=== PATIENT | female | born 1935 | race Caucasian/White ===

== ENCOUNTER 2018-12-29 11:28 | Inpatient (IN) | payer OTHER ==
[2018-12-23 12:59] VITALS: BMI 22.0
[2018-12-29] MEDS ORDERED: VANCOMYCIN 1 GRAM (PRE-DOCKED) 1,000 MG/250 ML BAG IVPB ONE (13:12)
[2018-12-29] MEDS ORDERED: CEFAZOLIN 1 GM/D5W 1 GM/50 ML BAG IVPB ONE (13:12)
[2018-12-29] MEDS ORDERED: TRANEXAMIC ACID 1000 MG/10 ML VIAL IVPUSH ONE (13:12)
[2018-12-29] MEDS ORDERED: MIDAZOLAM HCL 2 MG/2 ML SINGLE DOSE VIAL ONE (15:01)
[2018-12-29] MEDS ORDERED: SODIUM CHLORIDE 0.9% P/F 10 ML VIAL IJ ONE (15:01)
[2018-12-29] MEDS ORDERED: BUPIVACAINE LIPOSOME/PF (EXPAREL) 266 MG/20 ML VIAL ONE (15:01)
[2018-12-29] MEDS ORDERED: VANCOMYCIN 1,000 MG VIAL (RESTRICTED TO ID ONLY) ONE (15:55)
[2018-12-29] MEDS ORDERED: BUPIVACAINE HCL/PF 0.5% (5MG/ML) 10 ML VIAL ONE (16:53)
[2018-12-29] MEDS ORDERED: BUPIVACAINE 0.75% IN DEXTROSE/PF 2ML AMPULE NR ONE (17:06)
[2018-12-29] MEDS ORDERED: PROPOFOL 20 ML ONE ×3 (17:07)
[2018-12-29] MEDS ORDERED: ePHEDrine SULFATE 50 MG/1 ML AMPULE ONE (18:02)
[2018-12-29] MEDS ORDERED: DEXAMETHASONE SOD PHOSPHATE 4 MG/1 ML VIAL ONE (18:32)
[2018-12-29] MEDS ORDERED: ONDANSETRON 4 MG/2 ML VIAL ONE (18:33)
[2018-12-29] MEDS ORDERED: MAGNESIUM HYDROX 2400MG/30ML ORAL SUSPENSION 30 ML CUP PO PRN (19:46)
[2018-12-29] MEDS ORDERED: ONDANSETRON 4 MG/2 ML VIAL IVPUSH PRN (19:46)
[2018-12-29] MEDS ORDERED: MAG HYDROX/AL HYDROX/SIMETH 30 ML UNIT-DOSE CUP PO PRN (19:46)
--- NOTE | 2018-12-29 19:49 | PN ---
Progress Note (short form) - Note Progress Note: 83F s/p RIGHT total knee replacement POD #0. -Pain control. -DVT PPx: -Chemical: ASA 81mg PO BID x 6 weeks post-op; OK to restart Plavix. -Mechanical: ANA MARIA's, SCD's. -Incentive spirometry q15 min. -PT/OT/Rehab, OOB. -WBAT RLE. -Post-op Ancef x 2 doses. -f/u post-op TOV: 8 hours max. -f/u AM labs. -f/u drain output. -Diet as tolerated. -Care per medical hospitalist team. -Discharge planning: f/u [facility] Thursday12/05/2018; call for appointment . -Will follow. Frederick Marinelli MD (Orthopaedic Surgery).
--- NOTE | 2018-12-29 19:51 | OP ---
Operative Note - Note: Operative Date: 12/29/18 Pre-Operative Diagnosis: Right knee DJD Operation: Right TKA Implants: Dieter Triathlon. Femur - 3. Tibia - 2. Poly - 16mm, TS. Patella - 27mm, symmeric Post-Operative Diagnosis: Same as Pre-op Surgeon: Frederick Marinelli Electrician Apprentice Powerhouse: Vivek Marinelli Anesthesiologist/STATE GAME PROTECTOR: Rahul Cabrera Anesthesia: General, Spinal Specimens Removed: Bone, soft tissue Estimated Blood Loss (mls): 0 Drains & Tubes with Location: 1 x deep HemoVac Operative Report Dictated: Yes
[2018-12-29] MEDS ORDERED: LACTATED RINGERS SOLUTION 1,000 ML IV SCH (20:00)
[2018-12-29] MEDS ORDERED: PROMETHAZINE HCL 25 MG/1 ML VIAL IVPUSH PRN (20:03)
[2018-12-29] MEDS ORDERED: ACETAMINOPHEN 1000 MG/100 ML VIAL (NON FORMULARY) IVPB ONE (20:05)
[2018-12-29] MEDS ORDERED: ACETAMINOPHEN INJECTION 100 ML IVPB ONE (20:09)
[2018-12-29] MEDS ORDERED: ACETAMINOPHEN 325 MG TABLET (FP) PO SCH (20:15)
--- NOTE | 2018-12-29 20:59 | CONSULT ---
Consult Consult Specialty:: IM Reason for Consultation:: post-op medical management - History of Present Illness Chief Complaint: right knee pain History of Present Illness: 83 yo lady with chronic right knee DKD came in for TKR. currently recovering post-op no complaints - History Source History Provided By: Family Member - Past Medical History ...: No - Alcohol/Substance Use Hx Alcohol Use: No - Smoking History Smoking history: Never smoked Have you smoked in the past 12 months: No Home Medications - Allergies Allergies/Adverse Reactions: Allergies Allergy/AdvReac Type Severity Reaction Status Date / Time No Known Drug Allergies Allergy Verified 12/23/18 12:33 - Home Medications Home Medications: Ambulatory Orders Calcium Carbonate [Calcium] 500 mg PO DAILY 12/23/18 Clopidogrel Bisulfate [Plavix] 75 mg PO DAILY 12/23/18 Ferrous Sulfate 325 mg PO DAILY 12/23/18 Review of Systems - Review of Systems Constitutional: reports: No Symptoms Eyes: reports: No Symptoms HENT: reports: No Symptoms Neck: reports: No Symptoms Cardiovascular: reports: No Symptoms Respiratory: reports: No Symptoms Gastrointestinal: reports: No Symptoms Genitourinary: reports: No Symptoms Musculoskeletal: reports: Joint Pain Integumentary: reports: No Symptoms Neurological: reports: No Symptoms Endocrine: reports: No Symptoms Hematology/Lymphatic: reports: No Symptoms Psychiatric: reports: No Symptoms Physical Exam Vital Signs: Vital Signs Temperature 97.6 F 12/29/18 19:54 Pulse Rate 65 12/29/18 20:00 Respiratory Rate 1 L 12/29/18 20:00 Blood Pressure 154/73 12/29/18 20:00 O2 Sat by Pulse Oximetry (%) 99 12/29/18 20:00 Constitutional: Yes: Well Nourished, No Distress, Calm Eyes: Yes: WNL HENT: Yes: WNL Neck: Yes: WNL Cardiovascular: Yes: WNL Respiratory: Yes: WNL Gastrointestinal: Yes: WNL Renal/: Yes: WNL Musculoskeletal: Yes: Joint Stiffness Extremities: Yes: WNL Edema: No Peripheral Pulses WNL: Yes Integumentary: Yes: WNL Wound/Incision: Yes: Clean/Dry, Well Approximated, Dressing Dry and Intact Neurological: Yes: WNL Assessment/Plan 83 yo lady with chronic DJD S/P right knee TKR. POD#0. cont pain management. incentive spirometry. -GI, DVT prophylaxis. -cont stool softeners for opioid induced constipation -PT/OT/OOBa s tolerated -oal diet when more awake -assessment and plan discussed with medical staff and son at bedside. -labs pending. meds reviewed. will f/u in AM
[2018-12-29] MEDS: oxyCODONE HCL 5 MG TABLET PO PRN (22:31)
[2018-12-29] MEDS: ASPIRIN COATED 81 MG TABLET.EC PO SCH (22:32)
[2018-12-29] MEDS: SENNOSIDES/DOCUSATE COMBO (SENNA PLUS) TABLET (UD) PO SCH (22:33)
[2018-12-30] MEDS: ACETAMINOPHEN 325 MG TABLET (FP) PO SCH ×4 (01:54→20:28)
[2018-12-30] MEDS: CEFAZOLIN 1 GM/D5W 1 GM/50 ML BAG IVPB SCH ×2 (01:55→09:08)
[2018-12-30] MEDS: oxyCODONE HCL 5 MG TABLET PO PRN ×3 (06:42→18:40)
[2018-12-30 08:00] LABS: HEMATOCRIT 41.9 % (32.4-45.2); HEMOGLOBIN 14.3 GM/dl (10.7-15.3); MCH 31.2 pg (25.7-33.7); MCHC 34.1 g/dl (32.0-36.0); MEAN CELL VOLUME 91.5 fl (80-96); MEAN PLT VOLUME 10.5 fl (7.5-11.1); PLATELET COUNT 152 K/MM3 (134-434); RBC 4.58 M/mm3 (3.60-5.2); RDW 13.2 % (11.6-15.6); WHITE BLOOD COUNT 11.1 K/mm3 (4.0-10.8)
--- NOTE | 2018-12-30 08:00 | SPA.POSTOP ---
- POST-OP NOTE POD #1 s/p Right total knee replacement No acute events since surgical procedure per RN notes. Patient resting comfortably. Pain management via prn meds. Denies n/v/f/c, CP or SOB. Last Vital Signs Temp Pulse Resp BP Pulse Ox 98.6 F 90 20 122/59 L 95 12/30/18 06:00 12/30/18 06:00 12/30/18 06:00 12/30/18 06:00 12/30/18 06:00 Physical Exam General: No acute distress. Pulm: Clear to auscultation bilat anteriorly Cor: Regular rhythm Abd: Soft. Non-tender. No distention LE: Soft, Rt leg no weakness or numbness, dressing clean and intact, drain in place with serosanguinous drainage. Output: 10ml Problem List - Problems (1) S/P total knee arthroplasty Assessment/Plan: Plan -pt appears to be doing well, plan for discharge home tomorrow if no issues with PT -plan to remove drain tomorrow -pain control -OOB/ambulate -DVT ppx Case discussed with Dr. Marinelli who agrees with plan Code(s): Z96.659 - PRESENCE OF UNSPECIFIED ARTIFICIAL KNEE JOINT Qualifiers: Laterality: right Qualified Code(s): Z96.651 - Presence of right artificial knee joint
[2018-12-30 08:05] LABS: CALCIUM 8.7 mg/dl (8.5-10); CREATININE 0.8 mg/dl (0.55-1.3); POTASSIUM 4.1 mmol/L (3.5-5.1)
--- NOTE | 2018-12-30 09:01 | PN ---
Progress Note, Physician Chief Complaint: right knee pain History of Present Illness: 83 yo lady with chronic right knee DKD came in for TKR. currently recovering post-op no complaints - Current Medication List Current Medications: Active Medications Acetaminophen (Tylenol -) 650 mg PO Q6H [facility] Last Admin: 12/30/18 01:54 Dose: 650 mg Al Hydroxide/Mg Hydroxide (Mylanta Oral Suspension -) 30 ml PO Q4H PRN PRN Reason: DYSPEPSIA Aspirin (Ecotrin -) 81 mg PO BID [facility] Last Admin: 12/29/18 22:32 Dose: 81 mg Clopidogrel Bisulfate (Plavix -) 75 mg PO DAILY [facility] Cefazolin Sodium (Ancef 1 Gm Premixed Ivpb -) 1 gm in 50 mls @ 100 mls/hr IVPB Q8H-IV [facility] Stop: 12/30/18 10:29 Last Admin: 12/30/18 01:55 Dose: 100 mls/hr Magnesium Hydroxide (Milk Of Magnesia -) 30 ml PO PRN PRN PRN Reason: CONSTIPATION Ondansetron HCl (Zofran Injection) 4 mg IVPUSH Q6H PRN PRN Reason: NAUSEA Last Admin: 12/29/18 20:08 Dose: 4 mg Oxycodone HCl (Roxicodone -) 5 mg PO Q3H PRN PRN Reason: PAIN LEVEL 1-5 Oxycodone HCl (Roxicodone -) 10 mg PO Q3H PRN PRN Reason: PAIN LEVEL 6-10 Last Admin: 12/30/18 06:42 Dose: 10 mg Pantoprazole Sodium (Protonix -) 40 mg PO DAILY [facility] Promethazine HCl (Phenergan Injection -) 12.5 mg IVPUSH Q6H PRN PRN Reason: NAUSEA-FOR RESCUE AFTER 15 MIN Senna/Docusate Sodium (Pericolace -) 2 tablet PO BID [facility] Last Admin: 12/29/18 22:33 Dose: 2 tablet - Objective Vital Signs: Vital Signs Temperature 98.6 F 12/30/18 06:00 Pulse Rate 90 12/30/18 06:00 Respiratory Rate 20 12/30/18 06:00 Blood Pressure 122/59 L 12/30/18 06:00 O2 Sat by Pulse Oximetry (%) 95 12/30/18 06:00 Constitutional: Yes: Well Nourished, No Distress, Calm Eyes: Yes: WNL HENT: Yes: WNL Neck: Yes: WNL Cardiovascular: Yes: WNL Respiratory: Yes: WNL Gastrointestinal: Yes: WNL Genitourinary: Yes: WNL Musculoskeletal: Yes: Joint Stiffness Extremities: Yes: WNL Edema: No Peripheral Pulses WNL: Yes Integumentary: Yes: WNL Wound/Incision: Yes: Clean/Dry, Well Approximated, Dressing Dry and Intact Neurological: Yes: WNL ...Motor Strength: WNL Psychiatric: Yes: WNL Labs: CBC, BMP 12/30/18 07:21 12/30/18 07:21 Assessment/Plan 83 yo lady with chronic DJD S/P right knee TKR. POD#1 cont pain management. incentive spirometry. -GI, DVT prophylaxis. -cont stool softeners for opioid induced constipation -PT/OT/OOBa s tolerated. to start today -oral diet; well tolerated -assessment and plan discussed with medical staff. -labs reviewed. WNL - meds reviewed. w HILDA planned for tomorrow
[2018-12-30] MEDS: SENNOSIDES/DOCUSATE COMBO (SENNA PLUS) TABLET (UD) PO SCH ×2 (09:08→21:59)
[2018-12-30] MEDS: ASPIRIN COATED 81 MG TABLET.EC PO SCH ×2 (09:08→21:59)
[2018-12-30] MEDS: PANTOPRAZOLE 40 MG TABLET (FP) PO SCH (09:08)
[2018-12-30] MEDS: CLOPIDOGREL BISULFATE 75 MG TABLET (FP) PO SCH (09:08)
--- NOTE | 2018-12-30 12:40 | PN ---
Progress Note (short form) - Note Progress Note: Anesthesia post op note POD#1. S/P right TKA under spinal, general anesthesia. Pat seen and examined.VSS. On PT. Pain scale 4-5/10. No apparent post anesthesia complications.
--- NOTE | 2018-12-30 14:28 | OP ---
DATE OF OPERATION: 12/29/2018 SURGEON: Frederick Marinelli MD MARKETING DESIGNER: Vivek Marinelli MD PREOPERATIVE DIAGNOSIS: Fixed-valgus, fixed-flexed tricompartment osteoarthritic right knee. POSTOPERATIVE DIAGNOSIS: Fixed-valgus, fixed-flexed tricompartment osteoarthritic right knee. OPERATION PERFORMED: Right posterior stabilized total knee arthroplasty, (Dieter cemented). ANESTHESIA: General with peripheral nerve block. ANTIBIOTICS GIVEN: Kefzol 2 g, vancomycin 1 g, and Kefzol 1 g given at the end of the procedure. OPERATION DETAILS: Patient correctly identified, brought into the operating room. The right lower extremity was prepped and draped in the routine manner with Betadine scrub solution, wiped off with alcohol, DuraPrep applied. Preoperative evaluation revealed an approximately 30-degree valgus-fixed deformity and a 10-degree fixed-flexed deformity. Timeout was called. Imaging was available for intraoperative evaluation. Patient subjected to cleansing of the limb with Betadine scrub solution, wiped off with alcohol, DuraPrep applied, a free drape applied. A midline incision utilized. Dissection was taken through the skin, subcutaneous tissue, to the retinaculum and quadriceps mechanism. To start, the epimysium of vastus medialis was lifted off the muscle, and the dissection of the muscle extended right around to the intermuscular septum including the linea aspera. Diathermization of the small vessels along this part of the dissection performed. This was well anterior to the superficial femoral artery. The dissection was then continued along the tibia, from the tibial tubercle upwards to the level proximal to the joint line and then curving medially to join the dissection of the vastus medialis. The proximal soft tissues of the tibia were dissected sharply off the bone. The Hoffa fat pad was resected after creating a space behind the patellar ligament. The patella was capsized laterally and the knee flexed with a Hohmann placed behind the tibia and on the medial side of the tibia as well as the lateral side of the tibia. The entire tibia was subluxed forwards, this with the tibia in external rotation. The 1st cut was that with the extramedullary jig. This brought about a neutral 90-degree cut to the tibial shaft. Once this had been performed, the femoral cut was made, started slightly medially, that is, just on the lateral side of the medial femoral condyle. The intramedullary alignment jig was inserted. This was an intramedullary alignment, and the jig was applied to this appropriately. The sizing of the components was a tibia size 2, femur size 3. The flexion gaps and extension gaps, after all the tibial cuts were made, were at approximately 16 mm. The knee was straight with the appropriate rectangle in the flexion-extension gap being equal and appropriate tissue to the medial collateral stretched out structures achieved with this degree of expansion of the joint. Once this had been performed, and once all bony cuts had been completed, the tissues were subjected to pulse lavage including the bone bed, and cementing was in 1 stage. The patella itself was prepared by placing 2 sharp towel clip clamps around the patellar ligament and quadriceps tendon to hold the patella accurately and the actual pre-patellar cut was made to bring about a cut from the patellar ligament to quadriceps tendon. The appropriate jig was applied for the lugholes accordingly and size 27-mm patellar button opted for. Severe synovitis was resected appropriately and a full debridement of the knee performed. Again the bone bed was thoroughly lavaged, and cementing in 1 stage, that is, tibia followed by femur, then patella. All extraneous cement was removed. Once the cement had cured, at that point, a 16 trial polyethylene liner was inserted, found to bring about excellent stability in the coronal and sagittal plane in full flexion and full extension and no anterior subluxation of any significance. Because of the slightly space opening in the medial side, we elected to use a TS polyethylene on the 16 polyethylene liner. The wounds were thoroughly lavaged again. The knee range of movement was excellent, patellar tracking was normal in neutral. The closure was as follows: The medial retinaculum to the patellar ligament and remaining retinacular tissue with number 1 Vicryl, subcutaneous 1 and 2-0 Vicryl, skin 3-0 Monocryl with Steri-Strips. Drainage: A 1/8-inch Hemovac drain placed in the sub-vastus bed, brought out laterally. No complications. Operation went well. MD CARMELO Lopez/[id number]
[2018-12-31] MEDS: ACETAMINOPHEN 325 MG TABLET (FP) PO SCH ×3 (03:17→15:57)
[2018-12-31] MEDS: oxyCODONE HCL 5 MG TABLET PO PRN ×3 (06:45→15:56)
[2018-12-31 08:05] LABS: HEMATOCRIT 36.5 % (32.4-45.2); HEMOGLOBIN 12.3 GM/dl (10.7-15.3); MCH 30.7 pg (25.7-33.7); MCHC 33.7 g/dl (32.0-36.0); MEAN CELL VOLUME 91.1 fl (80-96); MEAN PLT VOLUME 10.2 fl (7.5-11.1); PLATELET COUNT 142 K/MM3 (134-434); RBC 4.01 M/mm3 (3.60-5.2); RDW 13.4 % (11.6-15.6); WHITE BLOOD COUNT 9.6 K/mm3 (4.0-10.8)
--- NOTE | 2018-12-31 08:53 | SPA.POSTOP ---
- POST-OP NOTE POD #2 s/p Right knee replacement No acute events since surgical procedure per RN notes. Patient resting comfortably. Pain management via prn meds. Denies n/v/f/c, CP or SOB. Last Vital Signs Temp Pulse Resp BP Pulse Ox 98.8 F 77 18 138/66 98 12/31/18 06:46 12/31/18 06:46 12/31/18 06:46 12/31/18 06:46 12/31/18 06:46 Physical Exam General: No acute distress. Pulm: breathing comfortably Cor: Regular rhythm Abd: Soft. Non-tender. No distention RLE: dressing is clean and in place, drain in place with serosanguinous drainage , mild tenderness over knee, no weakness or numbness Output: 210ml Problem List - Problems (1) S/P total knee arthroplasty Assessment/Plan: Plan -pt appears to be doing well, Knee drain was removed at bedside without incident. -pt should be cleared for discharge for home after PT this am -follow up with Dr. Marinelli in 2 weeks, see discharge instructions -discharge per MedicineDr. Dubon Code(s): Z96.659 - PRESENCE OF UNSPECIFIED ARTIFICIAL KNEE JOINT Qualifiers: Laterality: right Qualified Code(s): Z96.651 - Presence of right artificial knee joint
[2018-12-31] MEDS: CLOPIDOGREL BISULFATE 75 MG TABLET (FP) PO SCH (10:09)
[2018-12-31] MEDS: ASPIRIN COATED 81 MG TABLET.EC PO SCH (10:09)
[2018-12-31] MEDS: SENNOSIDES/DOCUSATE COMBO (SENNA PLUS) TABLET (UD) PO SCH (10:09)
[2018-12-31] MEDS: PANTOPRAZOLE 40 MG TABLET (FP) PO SCH (10:10)
--- NOTE | 2018-12-31 10:19 | PN ---
Progress Note, Physician Chief Complaint: right knee pain History of Present Illness: 83 yo lady with chronic right knee DKD came in for TKR. currently recovering post-op no complaints - Current Medication List Current Medications: Active Medications Acetaminophen (Tylenol -) 650 mg PO Q6H [facility] Last Admin: 12/31/18 10:08 Dose: 650 mg Al Hydroxide/Mg Hydroxide (Mylanta Oral Suspension -) 30 ml PO Q4H PRN PRN Reason: DYSPEPSIA Aspirin (Ecotrin -) 81 mg PO BID [facility] Last Admin: 12/31/18 10:09 Dose: 81 mg Clopidogrel Bisulfate (Plavix -) 75 mg PO DAILY [facility] Last Admin: 12/31/18 10:09 Dose: 75 mg Magnesium Hydroxide (Milk Of Magnesia -) 30 ml PO PRN PRN PRN Reason: CONSTIPATION Ondansetron HCl (Zofran Injection) 4 mg IVPUSH Q6H PRN PRN Reason: NAUSEA Last Admin: 12/29/18 20:08 Dose: 4 mg Oxycodone HCl (Roxicodone -) 5 mg PO Q3H PRN PRN Reason: PAIN LEVEL 1-5 Last Admin: 12/31/18 06:45 Dose: 5 mg Oxycodone HCl (Roxicodone -) 10 mg PO Q3H PRN PRN Reason: PAIN LEVEL 6-10 Last Admin: 12/31/18 10:10 Dose: 10 mg Pantoprazole Sodium (Protonix -) 40 mg PO DAILY [facility] Last Admin: 12/31/18 10:10 Dose: 40 mg Promethazine HCl (Phenergan Injection -) 12.5 mg IVPUSH Q6H PRN PRN Reason: NAUSEA-FOR RESCUE AFTER 15 MIN Senna/Docusate Sodium (Pericolace -) 2 tablet PO BID [facility] Last Admin: 12/31/18 10:09 Dose: 2 tablet - Objective Vital Signs: Vital Signs Temperature 98.8 F 12/31/18 06:46 Pulse Rate 77 12/31/18 06:46 Respiratory Rate 18 12/31/18 06:46 Blood Pressure 138/66 12/31/18 06:46 O2 Sat by Pulse Oximetry (%) 98 12/31/18 08:46 Constitutional: Yes: Well Nourished, No Distress, Calm Eyes: Yes: WNL HENT: Yes: WNL Neck: Yes: WNL Cardiovascular: Yes: WNL Respiratory: Yes: WNL Gastrointestinal: Yes: WNL Genitourinary: Yes: WNL Musculoskeletal: Yes: WNL, Joint Stiffness Extremities: Yes: WNL Edema: No Peripheral Pulses WNL: Yes Integumentary: Yes: WNL Wound/Incision: Yes: Clean/Dry, Well Approximated, Dressing Dry and Intact Neurological: Yes: WNL ...Motor Strength: WNL Psychiatric: Yes: WNL Labs: CBC, BMP 12/31/18 07:42 12/30/18 07:21
--- NOTE | 2018-12-31 13:26 | DS ---
Physical Examination Vital Signs: Vital Signs Temperature 98.8 F 12/31/18 06:46 Pulse Rate 77 12/31/18 06:46 Respiratory Rate 18 12/31/18 06:46 Blood Pressure 138/66 12/31/18 06:46 O2 Sat by Pulse Oximetry (%) 98 12/31/18 08:46 Constitutional: Yes: Well Nourished, No Distress, Calm Eyes: Yes: WNL HENT: Yes: WNL Neck: Yes: WNL Cardiovascular: Yes: WNL Respiratory: Yes: WNL Gastrointestinal: Yes: WNL Renal/: Yes: WNL Musculoskeletal: Yes: Joint Stiffness Extremities: Yes: WNL Edema: No Peripheral Pulses WNL: Yes Integumentary: Yes: WNL Wound/Incision: Yes: Clean/Dry, Well Approximated Neurological: Yes: WNL ...Motor Strength: WNL Psychiatric: Yes: WNL Labs: CBC, BMP 12/31/18 07:42 12/30/18 07:21 Discharge Summary Reason For Visit: PRIMARY OSTEOARTHRITIS Current Active Problems S/P total knee arthroplasty (Acute) Condition: Good - Instructions Diet, Activity, Other Instructions: Dr. Marinelli Discharge Instructions for Knee Replacement Post Operative Instructions Physical activity Physical Therapist will come to your home for the first 5 days. You will be set up with outpatient PT at your first post-operative visit. Use assistive devices for ambulation at all times. Weight bearing as tolerated on your surgical side. Do not put pillow under knee. May put pillow under heel. Wound care Leave your surgical dressing in place. Do not change the dressing until seen by your surgeon in the office. No baths or showers. Do not submerge your incision. Do not apply any ointments or lotions to your incision. Please call the office if your dressing is soiled/dirty or is falling off. Apply Graduated Compression Stockings (TEDS) to both lower extremities - remove daily for hygiene ONLY. Diet There are no dietary restrictions. Eat healthy, high-fiber foods. Drink 6 to 8 glasses of liquid each day. This will assist in keeping your bowels are regular. Pain management Any pain prescription medication ordered should be taken as prescribed for moderate to severe pain. Do not take additional Tylenol while taking Percocet. Take Aspirin 81 mg two times a day for a total of 6 weeks to prevent blood clots. Call Dr. Marinelli for any of the following: Severe pain not relieved by medication Fever of 101 or higher Excessive bleeding or drainage on dressing Inability to urinate If you experience chest pain or shortness of breath, please seek emergency care immediately. Please call the office at to confirm your post-op appointment for the week following surgery. Disposition: HOME - Home Medications Comprehensive Discharge Medication List: Ambulatory Orders Calcium Carbonate [Calcium] 500 mg PO DAILY 12/23/18 Clopidogrel Bisulfate [Plavix] 75 mg PO DAILY 12/23/18 Ferrous Sulfate 325 mg PO DAILY 12/23/18
[2018-12-31 14:24] VITALS: BP 126/58; PULSE 72; TEMP 98.3
--- NOTE | 2019-01-04 16:17 | PATH ---
Surgical Pathology Report Patient Name: ANU REYES Med. Rec. #: [id number] /Age/Gender: 1935 (Age: 83) / F Account: [id number] Location: [facility] MED-SUR[facility] Taken: 12/29/2018 Received: 12/29/2018 Reported: 01/04/2019 Physicians: Frederick Marinelli M.D. Specimen(s) Received A: SYNOVIUM RIGHT KNEE B: BONES RIGHT KNEE Clinical History Osteoarthritis right knee Final Diagnosis A. SYNOVIUM, RIGHT KNEE, SYNOVECTOMY: FIBROSYNOVIAL TISSUE SHOWING REACTIVE HYPERPLASIA AND CHRONIC INFLAMMATION. B. BONES, RIGHT KNEE, TOTAL KNEE REPLACEMENT: DEGENERATIVE JOINT DISEASE. Electronically Signed Shanna Wheeler M.D. Gross Description A. Received in formalin labeled "right knee synovium," is a 5.8 x 3.2 x 1.8 cm portion of hoff-yellow soft tissue, consistent with synovium. Waybill Clerk sections are submitted in one cassette. B. Received in formalin labeled "bones right knee," is a 12.0 x 11.5 x 2.7 cm aggregate of multiple portions of bone and soft tissue. The tibial plateau measures 7.0 x 4.8 x 1.8 cm. There is a 3.6 centimeter in greatest dimension area of eburnation present. The remaining articular surfaces are hoff-yellow and focally granular. The underlying trabecular bone is yellow and hard. Waybill Clerk sections are submitted in one cassette, following decalcification. /12/30/2018 saudi12/30/2018
== END 2018-12-31 15:57 | disposition home or self-care (01) | DRG 470 ==
LOC: FM/S 11:28
PROVIDERS: ADMIT Orthopaedic Surgery Orthopaedic Surgery of the Spine; ATTEND Orthopaedic Surgery Orthopaedic Surgery of the Spine
PROC: 0SRC0J9 Replacement of Right Knee Joint with Synthetic Substitute, Cemented, Open Approach (ICD-10-PCS; principal; 2018-12-29 17:44)
DX: M17.11 Unilateral primary osteoarthritis, right knee (principal); K59.03 Drug induced constipation; T40.2X5A Adverse effect of other opioids, initial encounter
CPT/HCPCS: 36415; 73560-TC-RT-FY; 80048; 85027; 88304-TC; 88311-TC; 94760; 97116-GP; 97163-GP; J0131

== ENCOUNTER 2019-05-11 05:15 | Day surgery (SDC) | payer OTHER ==
[2019-05-10 15:10] VITALS: BMI 20.9
[2019-05-11] MEDS ORDERED: methylPREDNISolone ACET (DEPO) 40 MG/1 ML VIAL ONE (13:46)
[2019-05-11] MEDS ORDERED: BUPIVACAINE HCL 0.25% 125 MG/50 ML VIAL ONE (13:46)
[2019-05-11] MEDS ORDERED: ONDANSETRON 4 MG/2 ML VIAL IVPUSH PRN ×2 (15:06→15:26)
[2019-05-11] MEDS ORDERED: traMADol HCL 50 MG TABLET PO PRN (15:12)
[2019-05-11] MEDS ORDERED: SODIUM CHLORIDE 1,000 ML IV SCH (15:15)
--- NOTE | 2019-05-11 15:15 | HP ---
HISTORY OF PRESENT ILLNESS: 83 year-old female with a PMH significant for HTN, HLD, and peripheral vascular diseaes s/p right femoral stent on Plavix. Patient underwent right total knee replacement on 12/29/18. Two weeks ago developed cellulitis of the right knee and was started on Bactrim. Patient underwent right knee arthroscopic lavage today with Dr. Frederick Marinelli. Recent Travel: No PAST MEDICAL HISTORY: Hypertension Hyperlipidemia Anxiety Osteoarthritis Mild cognitive impairment with memory loss Diverticulitis Peripheral vascular disease PAST SURGICAL HISTORY: Right total knee replacement 12/29/18 Right femoral vein stent 06/2018 Bilateral cataract surgery 2013 Left total knee replacement 2005 Cholecystectomy x 25 years Social History: Smoking: never Alcohol: rare Drugs: no Family history: reviewed and unremarkable Allergies No Known Drug Allergies Allergy (Verified 05/11/19 11:09) HOME MEDICATIONS: Home Medications Medication Instructions Recorded Clopidogrel Bisulfate [Plavix] 75 mg PO DAILY 12/23/18 Aspirin Coated [Ecotrin -] 81 mg PO BID tablet.ec 12/31/18 Acetaminophen [Pain Relief] 650 mg PO ASDIR PRN 05/10/19 Multivitamins [Tab-A-Vit -] 1 tab PO DAILY 05/10/19 Sulfamethoxazole/Trimethoprim 1 tab PO BID 05/10/19 [Bactrim Ds -] REVIEW OF SYSTEMS CONSTITUTIONAL: Absent: fever, chills, diaphoresis, generalized weakness, malaise, loss of appetite, weight change HEENT: Absent: rhinorrhea, nasal congestion, throat pain, throat swelling, difficulty swallowing, mouth swelling, ear pain, eye pain, visual changes CARDIOVASCULAR: Absent: chest pain, syncope, palpitations, irregular heart rate, lightheadedness , peripheral edema RESPIRATORY: Absent: cough, shortness of breath, dyspnea with exertion, orthopnea, wheezing, stridor, hemoptysis GASTROINTESTINAL: Absent: abdominal pain, abdominal distension, nausea, vomiting, diarrhea, constipation, melena, hematochezia GENITOURINARY: Absent: dysuria, frequency, urgency, hesitancy, hematuria, flank pain, genital pain MUSCULOSKELETAL: Absent: myalgia, arthralgia, joint swelling, back pain, neck pain SKIN: Absent: rash, itching, pallor HEMATOLOGIC/IMMUNOLOGIC: Absent: easy bleeding, easy bruising, lymphadenopathy, frequent infections ENDOCRINE: Absent: unexplained weight gain, unexplained weight loss, heat intolerance, cold intolerance NEUROLOGIC: Absent: headache, focal weakness or paresthesias, dizziness, unsteady gait, seizure, mental status changes, bladder or bowel incontinence PSYCHIATRIC: Absent: anxiety, depression, suicidal or homicidal ideation, hallucinations. PHYSICAL EXAMINATION Vital Signs - 24 hr 05/11/19 05/11/19 05/11/19 11:10 11:27 11:29 Temperature 98.2 F Pulse Rate 81 Respiratory 19 19 Rate Blood Pressure 128/70 O2 Sat by Pulse 97 97 97 Oximetry (%) GENERAL: Sleeping but easily arousable. Alert, responds appropriately, follows commands. HEAD: Normal with no signs of trauma. EYES: Pupils equal, round and reactive to light, extraocular movements intact, sclera anicteric, conjunctiva clear. No lid lag. LUNGS: Breath sounds equal, clear to auscultation bilaterally. No wheezes, and no crackles. No accessory muscle use. HEART: Regular rate and rhythm, normal S1 and S2 ABDOMEN: Soft, nontender, not distended UPPER EXTREMITIES: 2+ pulses, warm, well-perfused. No cyanosis. No clubbing. No peripheral edema. RIGHT LOWER EXTREMITY: 2+ pulses, warm, well-perfused. Leg immobilizer, ice pack , dressings c/d/i; 3/5 motor on right, 5/5 on left; sensory intact bilaterally NEUROLOGICAL: Cranial nerves II-XII intact. Normal speech. Pre op Hgb 10.5 BUN 26 Cr 1.0 Intra op Cefazolin 2g LR 2000mL ASSESSMENT/PLAN: 83 year-old female with a PMH significant for HTN, HLD, and peripheral vascular diseaes s/p right femoral stent on Plavix. Patient underwent right total knee replacement on 12/29/18. Two weeks ago developed cellulitis of the right knee and was started on Bactrim. Patient underwent right knee arthroscopic lavage today. Right knee cellulitis in setting of Right TKA, s/p arthroscopic lavage --POD #0 --perioperative antibiotics per surgery --pain management per surgery Peripheral vascular disease --hold Plavix Hypertension --BP stable --not on anti-hypertensives Hyperlipidemia --not on statin therapy FEN Fluids: LR@75mL/hr Electrolytes: replete as indicated Nutrition: regular diet DVT prophylaxis: OOB, ambulation, SCDs, TEDs, ASA 81mg BID Physical therapy Dispo: continues to require inpatient care. Full code. Visit type - Emergency Visit Emergency Visit: No - New Patient This patient is new to me today: Yes Date on this admission: 05/11/19 - Critical Care Critical Care patient: No
--- NOTE | 2019-05-11 15:15 | OP ---
Operative Note - Note: Operative Date: 05/11/19 Pre-Operative Diagnosis: right knee hemarthrosis Operation: right knee arthroscopic lavage Surgeon: Frederick Marinelli Anesthesiologist/VOLLEYBALL REFEREE: Teofilo Guan Anesthesia: General Operative Report Dictated: Yes
[2019-05-11] MEDS ORDERED: oxyCODONE HCL 5 MG TABLET PO PRN (15:26)
[2019-05-11] MEDS ORDERED: LACTATED RINGERS SOLUTION 1,000 ML IV SCH (15:30)
[2019-05-11] MEDS ORDERED: PROMETHAZINE HCL 25 MG/1 ML VIAL ONE (15:55)
[2019-05-11] MEDS ORDERED: PROMETHAZINE HCL 25 MG/1 ML VIAL IVPUSH ONE (15:59)
[2019-05-11] MEDS: ACETAMINOPHEN 325 MG TABLET (FP) PO SCH ×2 (18:25→23:46)
[2019-05-11] MEDS: CEFAZOLIN 1 GM/D5W 1 GM/50 ML BAG IVPB SCH (23:47)
[2019-05-12] MEDS: ACETAMINOPHEN 325 MG TABLET (FP) PO SCH ×2 (06:43→13:07)
[2019-05-12] MEDS: CEFAZOLIN 1 GM/D5W 1 GM/50 ML BAG IVPB SCH ×2 (06:43→14:30)
[2019-05-12 07:53] LABS: BASO % 0.3 % (0-2.0); EOS % 0.2 % (0-4.5); HEMATOCRIT 31.8 % (32.4-45.2); HEMOGLOBIN 10.5 GM/dl (10.7-15.3); LYMPH % 22.2 % (8-40); MCH 29.6 pg (25.7-33.7); MCHC 32.9 g/dl (32.0-36.0); MEAN CELL VOLUME 90.1 fl (80-96); MEAN PLT VOLUME 8.6 fl (7.5-11.1); MONO % 4.8 % (3.8-10.2); NEUT % 72.5 % (42.8-82.8); PLATELET COUNT 296 K/MM3 (134-434); RBC 3.53 M/mm3 (3.60-5.2); WHITE BLOOD COUNT 7.4 K/mm3 (4.0-10.8)
[2019-05-12 07:59] LABS: CALCIUM 8.7 mg/dl (8.5-10); CREATININE 0.7 mg/dl (0.55-1.3); POTASSIUM 4.8 mmol/L (3.5-5.1)
--- NOTE | 2019-05-12 08:13 | PN ---
Physical Exam: SUBJECTIVE: Patient seen and examined OBJECTIVE: Vital Signs Period Temp Pulse Resp BP Sys/Saini Pulse Ox Last 24 Hr 97.5 F-98.5 F 59-95 12-19 103-160/52-87 96-100 GENERAL: The patient is awake, alert, and fully oriented, in no acute distress. HEAD: Normal with no signs of trauma. EYES: PERRL, extraocular movements intact, sclera anicteric, conjunctiva clear. No ptosis. ENT: Ears normal, nares patent, oropharynx clear without exudates, moist mucous membranes. NECK: Trachea midline, full range of motion, supple. LUNGS: Breath sounds equal, clear to auscultation bilaterally, no wheezes, no crackles, no accessory muscle use. HEART: Regular rate and rhythm, S1, S2 without murmur, rub or gallop. ABDOMEN: Soft, nontender, nondistended, normoactive bowel sounds, no guarding, no rebound, no hepatosplenomegaly, no masses. EXTREMITIES: 2+ pulses, warm, well-perfused, no edema. NEUROLOGICAL: Cranial nerves II through XII grossly intact. Normal speech, gait not observed. PSYCH: Normal mood, normal affect. SKIN: Warm, dry, normal turgor, no rashes or lesions noted Laboratory Results - last 24 hr 05/12/19 07:28 WBC 7.4 RBC 3.53 L Hgb 10.5 L Hct 31.8 L MCV 90.1 MCH 29.6 MCHC 32.9 RDW 14.0 Plt Count 296 MPV 8.6 Absolute Neuts (auto) 5.3 Neutrophils % 72.5 Lymphocytes % 22.2 Monocytes % 4.8 Eosinophils % 0.2 Basophils % 0.3 Active Medications Generic Name Dose Route Start Last Admin Trade Name Freq PRN Reason Stop Dose Admin Acetaminophen 650 mg 05/11/19 18:00 05/12/19 06:43 Tylenol - PO 05/13/19 00:01 650 mg Q6H RACHEL Administration Cefazolin Sodium 1 gm in 50 mls @ 100 mls/hr 05/11/19 23:00 05/12/19 06:43 Ancef 1 Gm Premixed Ivpb - IVPB 100 mls/hr Q8H RACHEL Administration Lactated Ringer's 1,000 mls @ 75 mls/hr 05/11/19 15:30 05/11/19 18:12 Lactated Ringers Solution IV Not Given ASDIR RACHEL Multivitamins/Minerals/Vitamin C 1 tab 05/12/19 10:00 Tab-A-Vit - PO DAILY RACHLE Ondansetron HCl 4 mg 05/11/19 15:06 Zofran Injection IVPUSH Q6H PRN NAUSEA AND/OR VOMITING Oxycodone HCl 5 mg 05/11/19 15:26 Roxicodone - PO Q4H PRN PAIN LEVEL 1-5 Tramadol HCl 50 mg 05/11/19 15:12 Ultram - PO Q6H PRN PAIN LEVEL 1-5 ASSESSMENT/PLAN:
[2019-05-12 08:33] LABS: MAGNESIUM 2.1 mg/dL (1.8-2.4)
[2019-05-12] MEDS ORDERED: MULTIVITAMINS (DAILY MVI) TABLET (FP) PO SCH (10:00)
--- NOTE | 2019-05-12 10:59 | PN ---
Progress Note (short form) - Note Progress Note: 83F POD #1 for I&D right knee under GA. This am pt. seen resting comfortably in bed. No anesthesia related complications. Continue management per primary team.
--- NOTE | 2019-05-12 12:25 | OP ---
DATE OF OPERATION: DATE OF DICTATION: 05/11/2019 SURGEON: Frederick Marinelli MD PREOPERATIVE DIAGNOSIS: Hematoma, right knee following a previous total knee arthroplasty due to Plavix. POSTOPERATIVE DIAGNOSIS: Hematoma, right knee following a previous total knee arthroplasty due to Plavix. OPERATION PERFORMED: Arthroscopic lavage hematoma. Specimen sent to lab for culture and sensitivity. ANESTHESIA: General. OPERATION DETAILS: Patient correctly identified. Brought to the operating room. Right lower extremity was prepped and draped in the routine manner with Betadine scrub solution, wiped off with alcohol, DuraPrep applied. Arthroscopic instrumentation was introduced from the anterolateral portal as well as from the superolateral portal. This was both the scope as well as the wide cannula to facilitate washout of the insistent hematoma in the knee. The washout and inspection of the knee revealed extensive blood clot. This was thick, fibrinous clots present within the confines of the knee. This was lavaged with about 10 L of saline. We also utilized a large 4.5 radius shaver to help remove some of the fibrinous clot that was present accordingly. After this thorough lavage and marked improvement in the entire situation noted, the portals were closed with 3-0 nylon. The hematoma specimen that was initially drained out of the knee was sent to the lab for culture and sensitivity. This all appeared to be pure hematoma, no sign of infection. A light dressing applied with Webril and Tim wrap and then a knee immobilizer applied. Plan for 24 hours of antibiotics and then discharge to a rehabilitation facility or home. Frederick Marinelli MD [id number]
--- NOTE | 2019-05-12 13:24 | PN ---
Progress Note (short form) - Note Progress Note: poD#1 Pt without any complaints this am. OOB and ambulate to the restroom to void during the night. No having any pain this am Vital Signs Period Temp Pulse Resp BP Sys/Saini Pulse Ox Last 24 Hr 98.0 F-99.3 F 63-95 16-19 95-160/52-65 95-100 GEN: A&0x3, NAD CV; RRR Lungs: CTA b/l Right knee: immobilizer in place. ALEX wrap c/d/i. +2 DP pulses b/l. No calf tenderness b/l. No LLE edema. CBC, BMP 05/12/19 07:28 05/12/19 07:28 Microbiology 05/11/19 15:33 Knee - Right Gram Stain - Final 05/11/19 15:31 Knee - Right Gram Stain - Final A/p; 83 yo female s/p Right knee arthroscopy for cellulitis and hemarthrosis Pt receiving IV kefzol, awaiting culture results. D/w Dr. Marinelli and will send pt out again on bactrim and follow cultures as an outpt. Continue to hold aspirin and plavix Wear knee immobilizer upon discharge Follow up with Dr. Marinelli next week
[2019-05-12 14:06] VITALS: BP 95/52; PULSE 84; TEMP 99.3
--- NOTE | 2019-05-12 15:05 | DS ---
Physical Exam: SUBJECTIVE: Patient seen and examined OBJECTIVE: Vital Signs Period Temp Pulse Resp BP Sys/Saini Pulse Ox Last 24 Hr 97.5 F-99.3 F 59-95 13-19 95-160/52-87 95-100 PHYSICAL EXAM GENERAL: The patient is awake, alert, and fully oriented, in no acute distress. LUNGS: Breath sounds equal, clear to auscultation bilaterally, no wheezes, no crackles, no accessory muscle use. HEART: Regular rate and rhythm, S1, S2 ABDOMEN: Soft, nontender, nondistended RLE: Dressings taken down, knee is swollen, warm, but no erythema; two small incisions with edges well-approximated, no bleeding, no drainage; 2+ DP pulse NEUROLOGICAL: Cranial nerves II through XII grossly intact. Normal speech, gait not observed. SKIN: Warm, dry, normal turgor Laboratory Results - last 24 hr 05/12/19 05/12/19 07:28 07:28 WBC 7.4 RBC 3.53 L Hgb 10.5 L Hct 31.8 L MCV 90.1 MCH 29.6 MCHC 32.9 RDW 14.0 Plt Count 296 MPV 8.6 Absolute Neuts (auto) 5.3 Neutrophils % 72.5 Lymphocytes % 22.2 Monocytes % 4.8 Eosinophils % 0.2 Basophils % 0.3 Sodium 138 Potassium 4.8 Chloride 106 Carbon Dioxide 25 Anion Gap 7 L BUN 19.0 H Creatinine 0.7 Est GFR (CKD-EPI)AfAm 94.18 Est GFR (CKD-EPI)NonAf 81.26 Random Glucose 89 Calcium 8.7 Magnesium 2.1 Date of Admission:05/11/19 Date of Discharge: 05/12/19 Pre hospital course 83 year-old female with a PMH significant for HTN, HLD, and peripheral vascular diseaes s/p right femoral stent on Plavix. Patient underwent right total knee replacement on 12/29/18. Two weeks ago developed cellulitis of the right knee and was started on Bactrim. Hospital course Right knee cellulitis in post-op setting of Right TKA, s/p arthroscopic lavage on 05/11/19 --perioperative antibiotics complete --cultures sent from OR, pending results --discharge on Bactrim DS PO 1 tab BID --Dr. Marinelli will follow up on culture results Peripheral vascular disease --resumed Plavix on date of discharge Hypertension --BP stable --not on anti-hypertensives Hyperlipidemia --not on statin therapy Minutes to complete discharge: 35 Discharge Summary Problems reviewed: Yes Reason For Visit: CELLULITIS OF RIGHT LOWER LIMB/EFFUSION, RIGHT KNE - Instructions Diet, Activity, Other Instructions: Post Operative Instructions Physical activity Resume your normal everyday activity as tolerated no heavy lifting or exercise until seen by your surgeon. Wear your knee immobilizer at all times. You may put weight on both lower extremities. Wound care Wear quentin wrap for comfort. Apply ice packs to your right knee. Diet There are no dietary restrictions. Eat healthy, high-fiber foods. Drink 6 to 8 glasses of liquid each day. This will assist in keeping your bowels are regular. Pain management You may take Tylenol or acetaminophen or Ibuprofen (for example, Motrin, Advil etc.) Any pain prescription medication ordered should be taken as prescribed for moderate to severe pain. Call Dr. Marinelli for any of the following: Severe pain not relieved by medication Fever of 101 or higher Excessive bleeding or drainage on dressing Call the office for a post operative appointment in 7 - 10 days. - Home Medications Comprehensive Discharge Medication List: Ambulatory Orders Clopidogrel Bisulfate [Plavix] 75 mg PO DAILY 12/23/18 Aspirin Coated [Ecotrin -] 81 mg PO BID tablet.ec 12/31/18 Acetaminophen [Pain Relief] 650 mg PO ASDIR PRN 05/10/19 Multivitamins [Tab-A-Vit -] 1 tab PO DAILY 05/10/19 Sulfamethoxazole/Trimethoprim [Bactrim Ds -] 1 tab PO BID 05/10/19 This patient is new to me today: No Emergency Visit: No Critical Care patient: No - Discharge Referral Referred to [facility] No
[2019-05-12] MEDS ORDERED: CLOPIDOGREL BISULFATE 75 MG TABLET (FP) PO ONE (15:11)
== END 2019-05-12 16:40 | disposition home or self-care (01) ==
LOC: FASUSAT 05:15 → SUATTDRO 10:29 → FASUSAT 10:29 → FM/S 17:44 → FASUSAT 05-12 16:40
PROVIDERS: ATTEND Nurse Practitioner Acute Care
PROC: 0S9C4ZZ Drainage of Right Knee Joint, Percutaneous Endoscopic Approach (ICD-10-PCS; principal; 2019-05-11 14:44)
DX: M25.461 Effusion, right knee (principal); L03.115 Cellulitis of right lower limb; I10 Essential (primary) hypertension; E78.5 Hyperlipidemia, unspecified; I73.9 Peripheral vascular disease, unspecified; Z95.820 Peripheral vascular angioplasty status with implants and grafts; Z79.02 Long term (current) use of antithrombotics/antiplatelets; Z96.651 Presence of right artificial knee joint; F41.9 Anxiety disorder, unspecified; M19.90 Unspecified osteoarthritis, unspecified site
CPT/HCPCS: 36415; 80048; 83735; 85025; 87070; 87205; 94760; 97116-GP; 97162-GP